=== PATIENT | female | born 1990 | race Caucasian/White ===

== ENCOUNTER 2017-03-22 07:16 | Emergency (ER) | payer OTHER ==
[~2017-03-22] VITALS: Ht 154.9 cm; Wt 86.0 kg
[~2017-03-22 07:16] MED LIST: PREN0.01 PO; Z.0.NO CURRENT MEDS
[2017-03-22 07:18] VITALS: BP 131/73; PULSE 84; RESP 15; TEMP 98.5; O2SAT 98
[2017-03-22 07:35] VITALS: BP 125/70; PULSE 78; RESP 16; O2SAT 98
[2017-03-22] MEDS ORDERED: PNV11TAB (07:48)
[2017-03-22] MEDS ORDERED: SODIUM CHLOR 0.9% 1000 ML INJ 1,000 ML IV SCH (07:53)
--- NOTE | 2017-03-22 07:59 | PD ---
HPI Chief Complaint: Abdominal Pain Time Seen by Provider: 07:48 Travel History International Travel<30 days: No Contact w/Intl Traveler<30days: No Traveled to known affect area: No History of Present Illness HPI 27 years old female complains of epigastric, right upper quadrant left upper quadrant abdominal pain. Patient states the pain started this morning. Patient states the pain is sharp pain with radiation to the back. Patient states that she has nausea but no vomiting or diarrhea. Patient denies any dysuria or frequency. Patient denies any vaginal discharge or bleeding. Patient denies any fever chills. PFSH Past Medical History Diabetes: Yes (does not take medication) Patient Takes Glucophage: No Diminished Hearing: No Genitourinary: Yes (chronic kidney infections) Tetanus Vaccination: < 5 Years Influenza Vaccination: No ?: Not LMP: 02/11/17 : 4 Para: 2 Miscarriage: 2 Past Surgical History Section: Yes Ear Surgery: Yes (tubes in ears as a child) Social History Alcohol Use: No Tobacco Use: Yes (1/2 ppd) Substance Use: No Allergies-Medications (Allergen,Severity, Reaction): Coded Allergies: Penicillins (Verified Allergy, Mild, Hives, 03/22/17) banana (Verified Allergy, Mild, Nausea/Vomiting, 03/22/17) Reported Meds & Prescriptions Reported Meds & Active Scripts Active Reported Gummies ([id number]/FA/Omega3/Dha/Fish Oil) 1 Each Tab.chew Review of Systems General / Constitutional: No: Fever Eyes: No: Visual changes HENT: No: Headaches Cardiovascular: No: Chest Pain or Discomfort Respiratory: No: Shortness of Breath Gastrointestinal: Positive: Nausea, Abdominal Pain Genitourinary: No: Dysuria Musculoskeletal: No: Pain Skin: No Rash Neurologic: No: Weakness Psychiatric: No: Depression Endocrine: No: Polydipsia Hematologic/Lymphatic: No: Easy Bruising Physical Exam Narrative GENERAL: Well-nourished, well-developed patient. SKIN: Focused skin assessment warm/dry. HEAD: Normocephalic. EYES: No scleral icterus. No injection or drainage. NECK: Supple, trachea midline. No JVD or lymphadenopathy. CARDIOVASCULAR: Regular rate and rhythm without murmurs, gallops, or rubs. RESPIRATORY: Breath sounds equal bilaterally. No accessory muscle use. GASTROINTESTINAL: Abdomen soft, nondistended. Patient has moderate tenderness on palpation right upper quadrant, left lower quadrant of the abdomen. Mild tenderness on palpation epigastric area. No rebound tenderness. No mass. MUSCULOSKELETAL: No cyanosis, or edema. BACK: Nontender without obvious deformity. No CVA tenderness. Neurologic exam normal. Data Data Last Documented VS Vital Signs Date Time Temp Pulse Resp B/P Pulse Ox O2 Delivery O2 Flow Rate FiO2 03/22/17 07:35 78 16 125/70 98 Room Air 03/22/17 07:18 98.5 Orders Complete Blood Count With Diff (03/22/17 07:53) Comprehensive Metabolic Panel (03/22/17 07:53) Lipase (03/22/17 07:53) Prothrombin Time / Inr (Pt) (03/22/17 07:53) Act Partial Throm Time (Ptt) (03/22/17 07:53) Urinalysis - C+S If Indicated (03/22/17 07:53) Ct Abd/Pel W Iv Contrast(Rout) (03/22/17 07:53) Iv Access Insert/Monitor (03/22/17 07:53) Ecg Monitoring (03/22/17 07:53) Oximetry (03/22/17 07:53) Ondansetron Inj (Zofran Inj) (03/22/17 08:00) Pantoprazole Inj (Protonix Inj) (03/22/17 08:00) Sodium Chlor 0.9% 1000 Ml Inj (Ns 1000 M (03/22/17 07:53) Ed Urine Pregnancytest Poc (03/22/17 07:53) Iohexol 350 Inj (Omnipaque 350 Inj) (03/22/17 09:11) Labs Laboratory Tests Test 03/22/17 07:55 White Blood Count 8.6 TH/MM3 Red Blood Count 4.86 MIL/MM3 Hemoglobin 10.1 GM/DL Hematocrit 32.2 % Mean Corpuscular Volume 66.4 FL Mean Corpuscular Hemoglobin 20.8 PG Mean Corpuscular Hemoglobin 31.3 % Concent Red Cell Distribution Width 18.7 % Platelet Count 354 TH/MM3 Mean Platelet Volume 6.6 FL Neutrophils (%) (Auto) 53.6 % Lymphocytes (%) (Auto) 35.1 % Monocytes (%) (Auto) 6.7 % Eosinophils (%) (Auto) 3.8 % Basophils (%) (Auto) 0.8 % Neutrophils # (Auto) 4.6 TH/MM3 Lymphocytes # (Auto) 3.0 TH/MM3 Monocytes # (Auto) 0.6 TH/MM3 Eosinophils # (Auto) 0.3 TH/MM3 Basophils # (Auto) 0.1 TH/MM3 CBC Comment DIFF FINAL Differential Comment Prothrombin Time 10.0 SEC Prothromb Time International 0.9 RATIO Ratio Activated Partial 24.7 SEC Thromboplast Time Urine Color YELLOW Urine Turbidity CLEAR Urine pH 6.0 Urine Specific [place] 1.026 Urine Protein NEG mg/dL Urine Glucose (UA) NEG mg/dL Urine Ketones NEG mg/dL Urine Occult Blood NEG Urine Nitrite NEG Urine Bilirubin NEG Urine Urobilinogen LESS THAN 2.0 MG/DL Urine Leukocyte Esterase NEG Urine RBC 2 /hpf Urine WBC 1 /hpf Urine Squamous Epithelial 1 /hpf Cells Urine Bacteria RARE /hpf Microscopic Urinalysis Comment CULT NOT INDICATED Sodium Level 139 MEQ/L Potassium Level 3.9 MEQ/L Chloride Level 105 MEQ/L Carbon Dioxide Level 26.2 MEQ/L Anion Gap 8 MEQ/L Blood Urea Nitrogen 11 MG/DL Creatinine 0.73 MG/DL Estimat Glomerular Filtration 96 ML/MIN Rate Random Glucose 138 MG/DL Calcium Level 8.7 MG/DL Total Bilirubin 0.2 MG/DL Aspartate Amino Transf 12 U/L (AST/SGOT) Alanine Aminotransferase 27 U/L (ALT/SGPT) Alkaline Phosphatase 75 U/L Total Protein 7.5 GM/DL Albumin 3.4 GM/DL Lipase 155 U/L [facility] Medical Decision Making Medical Screen Exam Complete: Yes Emergency Medical Condition: Yes Interpretation(s) Last Impressions Abdomen/Pelvis CT 03/22/17 0753 Signed Impressions: Service Date/Time: March 08:56 - CONCLUSION: 1. Unremarkable bowel gas pattern with no inflammatory change or obstruction. 2. Mild hepatic steatosis. 3. Unremarkable gallbladder. Isreal Paul MD 9:52 AM. CBC with hemoglobin 10.1 hematocrit 32.2. MCV 66.4. CMP within normal limit. UA is negative. Differential Diagnosis Differential diagnosis including gastritis, PUD, pancreatitis, cholecystitis, colitis, UTI, pyelonephritis, nephrolithiasis. Narrative Course 27 years old female with upper abdominal pain. Normal saline solution 1 25 cc an hour. Protonix 40 mg IV. Zofran 4 mg IV. Diagnosis Primary Impression: Abdominal pain Qualified Code: R10.10 - Pain of upper abdomen Additional Impression: Gastritis Qualified Code: K29.00 - Acute gastritis without hemorrhage, unspecified gastritis type Patient Instructions: General Instructions Additional Instructions: Take medication as directed. Follow-up with personal physician and GI specialist. Return if worse. Med/Other Pt SpecificInfo: Prescription(s) given Scripts Ondansetron Odt (Zofran Odt)4 Mg Tab4 Mg SL Q6HR PRN (Nausea/Vomiting) #10 TAB Ref 0 Prov:Wally Thurman MD 03/22/17 Dicyclomine (Bentyl)10 Mg Cap10 Mg PO TID PRN (Bowel Management) #15 CAP Ref 0 Prov:Wally Thurman MD 03/22/17 Sucralfate (Carafate)1 Gm Tab1 Gm PO QID #120 TAB Ref 0 On empty stomach Prov:Wally Thurman MD 03/22/17 Pantoprazole (Protonix)20 Mg Tab20 Mg PO DAILY #30 TAB Prov:Wally Thurman MD 03/22/17 Disposition: 01 DISCHARGE HOME Condition: Stable Wally Thurman MD Mar 22, 2017 07:59
[2017-03-22] MEDS ORDERED: PANTOPRAZOLE SODIUM 40 MG VIAL IVP ONE (08:00)
[2017-03-22] MEDS ORDERED: ONDANSETRON HCL 4 MG/2 ML VIAL IVP ONE (08:00)
[2017-03-22 08:10] LABS: AUTOMATED NEUTROPHIL # 4.6 TH/MM3 (1.8-7.7); BASOPHIL # 0.1 TH/MM3 (0-0.2); BASOPHIL % 0.8 % (0.0-2.0); EOSINOPHIL # 0.3 TH/MM3 (0-0.4); EOSINOPHIL % 3.8 % (0.0-4.0); HEMATOCRIT 32.2 % (35.0-46.0); HEMO FLAGS DIFF FINAL; LYMPH % 35.1 % (9.0-44.0); MEAN CELL VOLUME 66.4 FL (80.0-100.0); MEAN CORPUSCULAR HEMOGLOBIN 20.8 PG (27.0-34.0); MEAN CORPUSCULAR HGB CONC 31.3 % (32.0-36.0); MONO % 6.7 % (0.0-8.0); NEUT % 53.6 % (16.0-70.0); PLATELET COUNT 354 TH/MM3 (150-450); RED BLOOD COUNT 4.86 MIL/MM3 (4.00-5.30); RED CELL DISTRIBUTION WIDTH 18.7 % (11.6-17.2); WHITE BLOOD COUNT 8.6 TH/MM3 (4.0-11.0)
[2017-03-22 08:11] LABS: BACTERIA, URINE RARE /hpf; BLOOD, URINE NEG (NEG); COMMENT (UR) CULT NOT INDICATED; CULTURE IF INDICATED CULT NOT INDICATED; GLUCOSE,URINE NEG (NEG); KETONE, URINE NEG (NEG); NITRITE,URINE NEG (NEG); SQUAMOUS EPITHELIAL CELL URINE 1 /hpf (0-5); URINE COLOR YELLOW (YELLW/STRAW)
[2017-03-22 08:17] LABS: APTT (PATIENT) 24.7 SEC (24.3-30.1); INTERNATIONAL NORMALIZED RATIO 0.9 RATIO
[2017-03-22 08:23] LABS: ANION GAP 8 MEQ/L (5-15); BICARBONATE 26.2 MEQ/L (21.0-32.0); BLOOD UREA NITROGEN 11 MG/DL (7-18); CHLORIDE 105 MEQ/L (98-107); POTASSIUM 3.9 MEQ/L (3.5-5.1); SODIUM (NA) 139 MEQ/L (136-145)
[2017-03-22 08:26] LABS: ALKALINE PHOSPHATASE 75 U/L (45-117); ALT (GPT) 27 U/L (10-53); AST (GOT) 12 U/L (15-37); GLOMERULAR FILTRATION RATE 96 ML/MIN (>89); TOTAL BILIRUBIN ADULT 0.2 MG/DL (0.2-1.0)
[2017-03-22] MEDS ORDERED: IOHEXOL 350 MG/ML 10 ML VIAL (for RAD DIAG) IV ONE (09:11)
--- NOTE | 2017-03-22 09:33 | RADRPT ---
EXAM DATE/TIME: 03/22/2017 08:56 [facility] COMPARISON: No previous studies available for comparison. INDICATIONS : Bilateral upper quadrant pain. IV CONTRAST: 90 cc Omnipaque 350 (iohexol) IV ORAL CONTRAST: No oral contrast ingested. RADIATION DOSE: 11.55 CTDIvol (mGy) MEDICAL HISTORY : None SURGICAL HISTORY : section. ENCOUNTER: Initial ACUITY: 1 day PAIN SCALE: 4/10 LOCATION: Bilateral upper quadrant TECHNIQUE: Volumetric scanning of the abdomen and pelvis was performed. Using automated exposure control and ad justment of the mA and/or kV according to patient size, radiation dose was kept as low as reasonably achievable to obtain optimal diagnostic quality images. DICOM format image data is available electro nically for review and comparison. FINDINGS: LOWER LUNGS: The visualized lower lungs are clear. LIVER: Homogeneous density without lesion. There is no dilation of the biliary tree. No calcified gallston es. There is mild hepatic steatosis. The gallbladder is unremarkable in appearance. SPLEEN: Normal size without lesion. PANCREAS: Within normal limits. KIDNEYS: Normal in size and shape. There is no mass, stone or hydronephrosis. ADRENAL GLANDS: Within normal limits. VASCULAR: There is no aortic aneurysm. BOWEL/MESENTERY: The stomach, small bowel, and colon demonstrate no acute abnormality. There is no free intraperitone al air or fluid. ABDOMINAL WALL: Within normal limits. RETROPERITONEUM: There is no lymphadenopathy. BLADDER: No wall thickening or mass. REPRODUCTIVE: Within normal limits. INGUINAL: There is no lymphadenopathy or hernia. MUSCULOSKELETAL: Within normal limits for patient age. CONCLUSION: 1. Unremarkable bowel gas pattern with no inflammatory change or obstruction. 2. Mild hepatic steatosis. 3. Unremarkable gallbladder. Isreal Paul MD on March 22, 2017 at 9:30 Board Certified Radiologist. This report was verified electronically.
[2017-03-22] MEDS ORDERED: DICY10 PO (09:57)
[2017-03-22] MEDS ORDERED: ZOFR4TAB3 SL (09:57)
[2017-03-22] MEDS ORDERED: PANT20 PO (09:57)
[2017-03-22] MEDS ORDERED: CARA1TAB6 PO (09:57)
== END 2017-03-22 10:16 | disposition home or self-care (01) ==
LOC: NEPE 07:16
DX: R10.12 Left upper quadrant pain (principal); K29.70 Gastritis, unspecified, without bleeding; K76.0 Fatty (change of) liver, not elsewhere classified; F17.210 Nicotine dependence, cigarettes, uncomplicated
CPT/HCPCS: 74177; 80053; 81001; 83690; 84703; 85025; 85610; 85730; 96361; 96374; 96375; 99285; C9113; J2405; J7030; Q9967